=== PATIENT | male | born 2000 | race Caucasian/White ===

== ENCOUNTER 2023-01-09 18:28 | Emergency (ER) | payer OTHER ==
[~2023-01-09] VITALS: Ht 172.7 cm; Wt 95.5 kg
[2023-01-09 18:41] VITALS: BP 145/76
[2023-01-09] MEDS ORDERED: HYDROcodone/acetaminophen 5mg/325mg tablet PO ONE (20:35)
[2023-01-09] MEDS ORDERED: ondansetron 4mg rapidly disintigrating tab PO ONE (20:35)
[2023-01-09] MEDS ORDERED: HYDR-3965 PO (20:53)
[2023-01-09] MEDS ORDERED: ONDA4TAB12 PO (20:53)
== END 2023-01-09 21:34 | disposition home or self-care (01) ==
LOC: ER 18:30
DX: S82.491A Other fracture of shaft of right fibula, initial encounter for closed fracture (principal); Z88.0 Allergy status to penicillin; Z88.1 Allergy status to other antibiotic agents; Z79.899 Other long term (current) drug therapy; X58.XXXA Exposure to other specified factors, initial encounter; Y93.89 Activity, other specified; Y92.89 Other specified places as the place of occurrence of the external cause; Y99.8 Other external cause status
CPT/HCPCS: 73590; 73610; 99284; L4360